=== PATIENT | female | born 1960 | race Caucasian/White ===

== ENCOUNTER → 2020-04-19 | Outpatient (CLI) | payer BC ==
--- NOTE | 2020-04-19 11:30 | RAD ---
Two-view chest dated 04/19/2020. No comparison available. INDICATION: Shortness of breath. FINDINGS:. PA and lateral views obtained. Heart and mediastinal contours within normal limits. Lungs are clear. No consolidation or pleural effusion. No pneumothorax. There are a few scattered calcified granuloma. IMPRESSION: No acute radiographic abnormality. Electronically signed by: Alfred Millard MD (04/19/2020 11:28 AM) [id number]
== END ==
LOC: DXRAD 10:55
PROVIDERS: ATTEND Physician Assistant
DX: R05 Cough (principal); R06.02 Shortness of breath
CPT/HCPCS: 71046